=== PATIENT | male | born 1965 | race Caucasian/White ===

== ENCOUNTER 2019-12-02 | Emergency (ER) | payer BC ==
[~2019-12-02] MED LIST: LORTAB 1010 MG PO
[2019-12-02 19:43] LABS: HEMATOCRIT 35.2 % (39.0-50.0); HEMOGLOBIN 12.3 g/dl (14.0-18.0); IMMATURE GRANULOCYTES 0.6 % (0.0-5.0); MEAN CELL VOLUME 105.7 fL CALC (80.0-100.0); MEAN CORPUSCULAR HGB 36.9 pG CALC (26.0-32.0); MEAN CORPUSCULAR HGB CONC 34.9 g/dL CAL (32.0-36.0); NEUT# 4.95 thou/uL (1.82-7.42); RED BLOOD COUNT 3.33 mill/uL (4.70-6.10)
[2019-12-02 19:47] LABS: URINE BILIRUBIN - DIPSTICK NEGATIVE (NEGATIVE); URINE BLOOD DIPSTICK NEGATIVE (NEGATIVE); URINE COLOR YELLOW; URINE GLUCOSE - DIPSTICK NEGATIVE (NEGATIVE); URINE KETONE 15 mg/dL (NEGATIVE); URINE LEUK ESTERASE NEGATIVE (NEGATIVE); URINE NITRITE - DIPSTICK NEGATIVE (Negative); URINE PH 7.5 (4.5-8.0); URINE PROTEIN - DIPSTICK 30 mg/dL (NEG-TRACE); URINE SPECIFIC GRAVITY 1.025
[2019-12-02 19:50] LABS: COCAINE NEGATIVE (NEGATIVE); METHADONE NEGATIVE (NEGATIVE); TETRAHYDROCANNABIONOL NEGATIVE (NEGATIVE)
[2019-12-02 19:51] LABS: BARBITURATES NEGATIVE (NEGATIVE); OXCYCODONE NEGATIVE (NEGATIVE); TRICYLIC ANTIDEPRESSANTS NEGATIVE (NEGATIVE)
[2019-12-02 19:52] LABS: URINE RBC 0-2 RBC/hpf (0-5); URINE WBC 0-2 WBC/hpf (0-5)
[2019-12-02 20:03] LABS: ALBUMIN 3.7 g/dL (3.2-5.0); ALKALINE PHOSPHATASE 122 u/l (38-126); ANION GAP 12 (6-22 (CALC)); BILIRUBIN, TOTAL 0.8 mg/dL (0.0-1.4); BUN 13 mg/dL (9-20); BUN/CREATININE RATIO 24 (12-20 (CALC)); CARBON DIOXIDE 28 mmol/l (22-30); CHLORIDE 101 mmol/l (95-108); CREATININE 0.5 mg/dL (0.7-1.3); ETHYL ALCOHOL 0 mg/dl (0-30); GFR > 60 ML/MIN (>=60 (CALC)); GFR FOR AFR.AMER. > 60 ML/MIN (>=60 (CALC)); POTASSIUM 4.6 mmol/l (3.5-5.1); SGOT/AST 114 u/l (17-59); SODIUM 136 mmol/l (137-146); TOTAL PROTEIN 6.4 g/dL (6.3-8.2)
[2019-12-02] MEDS ORDERED: DILANTIN100 MG PO (20:53)
== END 2019-12-02 21:29 | disposition home or self-care (01) | DRG 101 ==
PROVIDERS: Family Medicine
DX: R56.9 Unspecified convulsions (principal)

== ENCOUNTER 2021-08-28 13:44 | Emergency (ER) | payer SELFPAY ==
[~2021-08-28] VITALS: Ht 177.8 cm; Wt 65.0 kg
[~2021-08-28 13:44] MED LIST changes: +DILANTIN100 MG PO
[2021-08-28 14:28] LABS: IMMATURE GRANULOCYTES 0.3 % (0.0-5.0); MEAN CORPUSCULAR HGB 27.1 pG CALC (26.0-32.0); MEAN CORPUSCULAR HGB CONC 31.8 g/dL CAL (32.0-36.0); NEUT# 5.12 thou/uL (1.82-7.42); RED BLOOD COUNT 3.4 mill/uL (4.70-6.10); RED CELL DISTRI WIDTH 20.3 % (11.5-15.5)
[2021-08-28 14:29] LABS: HEMATOCRIT 28.9 % (39.0-50.0); HEMOGLOBIN 9.2 g/dl (14.0-18.0)
[2021-08-28 14:42] LABS: ALBUMIN 3.9 g/dL (3.2-5.0); ALKALINE PHOSPHATASE 244 u/l (38-126); ANION GAP 18 (6-22 (CALC)); BILIRUBIN, TOTAL 1.9 mg/dL (0.0-1.4); BUN 11 mg/dL (9-20); BUN/CREATININE RATIO 25 (12-20 (CALC)); CARBON DIOXIDE 21 mmol/l (22-30); CHLORIDE 105 mmol/l (95-108); CREATININE 0.4 mg/dL (0.7-1.3); GFR > 60 ML/MIN (>=60 (CALC)); GFR FOR AFR.AMER. > 60 ML/MIN (>=60 (CALC)); LIPASE 37 u/l (23-300); POTASSIUM 3.7 mmol/l (3.5-5.1); SGOT/AST 58 u/l (17-59); SODIUM 140 mmol/l (137-146); TOTAL PROTEIN 9.1 g/dL (6.3-8.2)
[2021-08-28 17:36] VITALS: BP 131/70
[2021-08-29] MEDS ORDERED: KEPPRA500 M2 PO (07:40)
== END 2021-08-28 17:11 | disposition home or self-care (01) | DRG 433 ==
LOC: ED 13:44
PROVIDERS: Family Medicine
DX: K74.60 Unspecified cirrhosis of liver (principal); R18.8 Other ascites; D64.9 Anemia, unspecified; E86.0 Dehydration; R56.9 Unspecified convulsions; F17.290 Nicotine dependence, other tobacco product, uncomplicated
CPT/HCPCS: Q9967

== ENCOUNTER 2021-08-29 07:18 | Emergency (ER) | payer SELFPAY ==
[~2021-08-29] VITALS: Ht 177.8 cm; Wt 64.5 kg
[2021-08-29] MEDS ORDERED: KEPPRA500 M2 PO (07:40)
[2021-08-29 08:14] LABS: HEMATOCRIT 27.8 % (39.0-50.0); HEMOGLOBIN 8.7 g/dl (14.0-18.0); IMMATURE GRANULOCYTES 0.3 % (0.0-5.0); MEAN CELL VOLUME 85.5 fL CALC (80.0-100.0); MEAN CORPUSCULAR HGB 26.8 pG CALC (26.0-32.0); MEAN CORPUSCULAR HGB CONC 31.3 g/dL CAL (32.0-36.0); NEUT# 3.91 thou/uL (1.82-7.42); RED BLOOD COUNT 3.25 mill/uL (4.70-6.10); RED CELL DISTRI WIDTH 20.4 % (11.5-15.5)
[2021-08-29 08:19] LABS: ALBUMIN 3.5 g/dL (3.2-5.0); ALKALINE PHOSPHATASE 207 u/l (38-126); ANION GAP 12 (6-22 (CALC)); BILIRUBIN, TOTAL 2.2 mg/dL (0.0-1.4); BUN 9 mg/dL (9-20); BUN/CREATININE RATIO 21 (12-20 (CALC)); CARBON DIOXIDE 25 mmol/l (22-30); CHLORIDE 102 mmol/l (95-108); CREATININE 0.4 mg/dL (0.7-1.3); GFR > 60 ML/MIN (>=60 (CALC)); GFR FOR AFR.AMER. > 60 ML/MIN (>=60 (CALC)); POTASSIUM 3.2 mmol/l (3.5-5.1); SGOT/AST 44 u/l (17-59); SODIUM 135 mmol/l (137-146); TOTAL PROTEIN 8.3 g/dL (6.3-8.2)
[2021-08-29 09:11] LABS: INTERNATIONAL NORMALIZED RATIO 1.4 RATIO (0.7-1.3); PROTHROMBIN TIME 13.9 SECONDS (9.0-12.5)
[2021-08-29 10:17] VITALS: BP 113/74
== END 2021-08-29 10:58 | disposition home or self-care (01) | DRG 434 ==
LOC: ED 07:18
PROVIDERS: Emergency Medicine
PROC: 0W9G3ZZ Drainage of Peritoneal Cavity, Percutaneous Approach (ICD-10-PCS; principal; 2021-08-29)
DX: K70.31 Alcoholic cirrhosis of liver with ascites (principal); D64.9 Anemia, unspecified; D69.6 Thrombocytopenia, unspecified; F17.290 Nicotine dependence, other tobacco product, uncomplicated; Z20.822 Contact with and (suspected) exposure to COVID-19
CPT/HCPCS: P9047

== ENCOUNTER 2022-07-11 17:01 | Emergency (ER) | payer SELFPAY ==
[~2022-07-11 17:01] MED LIST changes: +KEPPRA500 M2 PO
== END 2022-07-11 17:24 | disposition left against medical advice (07) | DRG 951 ==
LOC: ED 17:01 → LWOBS 17:24
DX: Z53.21 Procedure and treatment not carried out due to patient leaving prior to being seen by health care provider (principal)

== ENCOUNTER 2023-08-26 08:23 | Day surgery (SDC) | payer MEDICARE ==
[~2023-08-26] VITALS: Ht 177.8 cm; Wt 68.0 kg
[~2023-08-26 08:23] MED LIST changes: +AMLODIPINE BESY10 MG PO; +FUROSEMIDE20 MG PO; +MENS PO; +MULTIV PO; +SILDENAFIL50 M1 PO; +SPIRONOLACT25 MG PO
[2023-08-26 10:20] VITALS: BP 118/77
== END 2023-08-26 10:47 | disposition home or self-care (01) ==
LOC: ORM 08:23
PROVIDERS: ATTEND Internal Medicine Gastroenterology
PROC: 0DJD8ZZ Inspection of Lower Intestinal Tract, Via Natural or Artificial Opening Endoscopic (ICD-10-PCS; principal; 2023-08-26)
PROC: 0DB78ZX Excision of Stomach, Pylorus, Via Natural or Artificial Opening Endoscopic, Diagnostic (ICD-10-PCS; 2023-08-26)
DX: Z12.11 Encounter for screening for malignant neoplasm of colon (principal); K57.30 Diverticulosis of large intestine without perforation or abscess without bleeding; K64.8 Other hemorrhoids; K29.50 Unspecified chronic gastritis without bleeding; K70.30 Alcoholic cirrhosis of liver without ascites; I85.10 Secondary esophageal varices without bleeding; K76.6 Portal hypertension; K31.89 Other diseases of stomach and duodenum
CPT/HCPCS: 43239; G0121